=== PATIENT | male | born 1960 | race Caucasian/White ===

== ENCOUNTER → 2022-04-14 | Outpatient (CLI) | payer BC ==
[~2022-04-14] VITALS: Ht 170.2 cm; Wt 84.2 kg
[2022-04-14] VITALS (8 sets, daily range): BP systolic 125–149; BP diastolic 77–84; PULSE 95–102; TEMP 98.3
[~2022-04-14] MED LIST: AMARYL4 MG PO; ASPIRIN 32325 MG/TAB PO; BYDUREON B2 MG/0.85 IJ; COZAAR 50MG50 MG/TAB PO; GLUCOPHAGE1000 MG PO; JARDIANCE10 PO; MAGNESIUM250 M1 PO; NORVASC 5MG5 MG/TAB PO; PRAVACHOL 40MG40 MG PO; PRIL40 PO; SLEEP AID50 MG PO; TYLENOL PM EXTR1 TA1 PO
== END ==
LOC: COL.RAD 13:05
DX: R22.2 Localized swelling, mass and lump, trunk (principal); Z85.72 Personal history of non-Hodgkin lymphomas
CPT/HCPCS: 32108